=== PATIENT | female | born 1990 | race Caucasian/White ===

== ENCOUNTER 2016-09-23 11:00 | Emergency (ER) | payer BC, OTHER ==
[2014-10-24 22:54] VITALS: BMI 23.8
[2016-09-23] MEDS ORDERED: Lactated Ringer's 1,000 ML IV ONE (11:14)
[2016-09-23 12:09] LABS: BASO % 0.5 % (0.0-2.0); EOS # 0.4 K/uL (0.0-0.7); EOS % 3.8 % (0.0-4.0); HEMATOCRIT 25.9 % (34.0-47.0); LYMPH # 1.1 K/uL (1.0-4.3); LYMPH % 12.1 % (20.0-40.0); MEAN CELL VOLUME 74.7 fL (81.0-99.0); MEAN CORPUSCULAR HEMOGLOBIN 23.7 pg (27.0-31.0); MEAN CORPUSCULAR HGB CONC 31.7 g/dL (33.0-37.0); MEAN PLATELET VOLUME 9.5 fL (7.2-11.7); MONO # 0.5 K/uL (0.0-0.8); MONO % 5.2 % (0.0-10.0); RED CELL DISTRIBUTION WIDTH 15.1 % (11.5-14.5); WHITE BLOOD COUNT 9.2 K/uL (4.8-10.8)
[2016-09-23 12:16] LABS: CHLORIDE 103 mmol/L (98-107)
[2016-09-23 12:17] LABS: POTASSIUM 3.4 mmol/L (3.6-5.2); SODIUM 134 mmol/L (132-148)
[2016-09-23 12:19] LABS: ALB/GLOB RATIO 0.8 (1.0-2.1); ALKALINE PHOSPHATASE 108 U/L (38-126); AST/SGOT 33 U/L (14-36); BILIRUBIN,TOTAL 0.4 mg/dL (0.2-1.3); BLOOD UREA NITROGEN 5 mg/dL (7-17); CARBON DIOXIDE 22 mmol/L (22-30); GFR AFRICAN-AMERICAN > 60; TOTAL PROTEIN 6.7 g/dL (6.3-8.3)
[2016-09-23 12:20] LABS: ALT/SGPT 13 U/L (9-52); GLUCOSE,RANDOM 105 mg/dL (65-105); MAGNESIUM 1.7 mg/dL (1.6-2.3)
[2016-09-23 12:41] LABS: RBC URINE 1 /hpf (0-3); URINE BACTERIA RARE (<OCC); URINE BILIRUBIN NEGATIVE (NEGATIVE); URINE BLOOD NEGATIVE (NEGATIVE); URINE COLOR Yellow (YELLOW); URINE GLUCOSE (UA) NORMAL (Normal); URINE KETONE NEGATIVE (NEGATIVE); URINE LEUKOCYTE ESTERASE 3+ Leu/uL (Negative); URINE PROTEIN 1+ mg/dL (NEGATIVE); URINE UROBILINOGEN NORMAL mg/dL (0.2-1.0); WBC URINE 12 /hpf (0-5)
--- NOTE | 2016-09-23 13:42 | US ---
OB limited/biophysical profile ultrasound Indication: Abdominal pain Technique: Grayscale, color flow, and M-mode sonographic images of the single live intrauterine were obtained. Comparison: None available. Findings: There is a single live intrauterine gestation. The fetus is in cephalic position. The placenta is anterior. There is no evidence of previa. There is a normal amount of amniotic fluid. The SARA measures 12.0 cm . M-mode imaging demonstrates a heart rate to be 135.6 beats per min. Cervix length measures approximately 5.8 cm in length. movements 2/2 breathing 2/2 tone 2/2 Amniotic fluid 2/2 Total score impression: 8/8 Impression: Biophysical profile of 8 out of 8. Single live intrauterine in cephalic position with a heart rate of 135.6 beats per min. The study was performed for the emergent evaluation of pain, and the whole anatomic survey of the fetus was not performed. This should be performed on an outpatient elective basis as clinically warranted.
--- NOTE | 2016-09-23 14:46 | OBHP ---
Datetime: 09/23/2016 11:29 IP Adm Impression: , intrauterine Admit Comment, IP Provider: chief complaint- cramping and back pain HPI 26 y/o at 28.3 wga with c/o lower abdominal cramping and back pain since morning.Patient states that she did not have water to drink.Denies vaginal bleeding course uncomplicated as per patient PMH denies PSH denies OBGYN HX ; [id number] Social hx denies tobacco,alcohol or illicit drug use Exam see exam section A/P 26 y/o at 28.3 wga with c/o lower abdominal cramping and back pain -iv fluids -send UA -Check cervical length/ultrasound 2.42 pm patient states that she feels better with iv fluids cervix re-examined and uncanged from previous exam UA wth protein, le, bacteria, wbc and rbc A/P Patient at 28 weeks and 3 days with lower abdominal cramping.UTI -Script for macrobid given -follow up in am in clinic -patient given labor, pprom and bleeding precautions Pelvic Type - PN: Adequate Extremities - PN: Normal Abdomen - PN: Normal Back - PN: Normal Lungs - PN: Normal Heart - PN: Normal Neurologic - PN: Normal General - PN: Normal Contraction Comments Provider: occ Gestation - Est Wks by US: 28.3 IP Hx Assessment: The History has been Reviewed and is Current EGA AdmitDate IP: 28.3 Vital Signs Provider: Reviewed; Within Normal Limits IP Chief Complaint: Uterine contractions FHR Category Provider Fetus A: Category I Dilatation, Provider: ft Effacement, Provider: 30 Station, Provider: -3 Genitourinary Exam: Normal DTRs - PN: Normal
== END 2016-09-23 14:37 | disposition home or self-care (01) ==
LOC: C.EROB 11:00
DX: O23.43 Unspecified infection of urinary tract in pregnancy, third trimester (principal); Z3A.28 28 weeks gestation of pregnancy
CPT/HCPCS: 76815; 76818; 80053; 81001; 83735; 85025; 86850; 86900; 99283; J7120